=== PATIENT | female | born 1990 | race African-American/Black ===

== ENCOUNTER 2016-12-29 11:30 | Day surgery (SDC) | payer OTHER ==
[2016-12-29] MEDS ORDERED: Azithromycin 250 MG TAB ONE (13:13)
[2016-12-29] MEDS ORDERED: Lidocaine 1% PF 5 ML VIAL ONE (13:17)
[2016-12-29] MEDS ORDERED: cefTRIAXone\\ROCEPHIN 250 MG VIAL ONE (13:17)
== END 2016-12-29 13:45 | disposition home or self-care (01) ==
LOC: ER/OP 11:30 → ERS 11:30 → EDSTATUS 12:27 → ER/OP 13:45
PROVIDERS: ATTEND Obstetrics & Gynecology
DX: Z11.3 Encounter for screening for infections with a predominantly sexual mode of transmission (principal)
CPT/HCPCS: J0696; J2001

== ENCOUNTER 2020-06-12 10:17 | Emergency (ER) | payer OTHER | END 2020-06-12 11:10 | disposition home or self-care (01) | LOC: ERS 10:17 | DX: M54.12 Radiculopathy, cervical region (principal); F17.210 Nicotine dependence, cigarettes, uncomplicated | CPT/HCPCS: 99283 ==

== ENCOUNTER 2021-01-19 13:27 | Emergency (ER) | payer OTHER ==
[2021-01-19] MEDS ORDERED: Ketorolac Tromethamine 30 MG/ML VIAL ONE (14:27)
== END 2021-01-19 14:49 | disposition home or self-care (01) ==
LOC: ERS 13:27
DX: M77.32 Calcaneal spur, left foot (principal); F17.210 Nicotine dependence, cigarettes, uncomplicated
CPT/HCPCS: 96372; J1885

== ENCOUNTER 2021-08-04 14:31 | Emergency (ER) | payer OTHER ==
[2021-08-05 11:27] LABS: SARS-CoV-2 PCR by NAA Not Detected (NotDetected)
== END 2021-08-04 15:20 | disposition home or self-care (01) ==
LOC: ERS 14:31
DX: J02.9 Acute pharyngitis, unspecified (principal); R06.02 Shortness of breath; R09.81 Nasal congestion; R05.9 Cough, unspecified; F17.210 Nicotine dependence, cigarettes, uncomplicated; Z20.822 Contact with and (suspected) exposure to COVID-19
CPT/HCPCS: 99283; U0003; U0005